=== PATIENT | male | born 1980 | race Caucasian/White ===

== ENCOUNTER 2020-01-04 13:30 | Emergency (ER) | payer MEDICAID ==
--- NOTE | 2020-01-04 14:41 | EDM.PDOC ---
ED HPI GENERAL MEDICAL PROBLEM - General Chief Complaint: General Stated Complaint: BUMPS ON HEAD, HEADACHES, POSSIBLE RINGWORM Time Seen by Provider: 01/04/20 14:25 Source of Information: Reports: Patient History Limitations: Reports: No Limitations - History of Present Illness INITIAL COMMENTS - FREE TEXT/NARRATIVE: c/o lump on back of head for 2w pt just moved from [facility], no PCP he has a lump as well as a skin rash, no f/c/d, no sob smokes THC, none in 1.5w no chronic health issues, no daily meds, has no PCP yet has had bifrontal GOLD x 2d, agreeable to Toradol Treatments [employer]: Reports: Acetaminophen, NSAIDS R posterior head Pain Score (Numeric/FACES): 6 - Related Data Allergies Allergy/AdvReac Type Severity Reaction Status Date / Time .bubble gum flavoring Allergy Rash Uncoded 01/04/20 13:41 Home Meds: Home Meds Ibuprofen [Motrin] 800 mg PO TID #30 tablet 01/04/20 [Rx] Miconazole [Miconazole 2% Crm] 30 gm TOP BID #1 tube 01/04/20 [Rx] Past Medical History Genitourinary History: Reports: Renal Calculus Musculoskeletal History: Reports: Arthritis, Fracture Other Musculoskeletal History: 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 L 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, scaffoid bone Neurological History: Reports: Concussion, Migraines Psychiatric History: Reports: Anxiety Endocrine/Metabolic History: Reports: Obesity/BMI 30+ - Infectious Disease History Infectious Disease History: Reports: Chicken Pox - Past Surgical History HEENT Surgical History: Reports: Adenoidectomy, Myringotomy w Tube(s), Oral Surgery, Tonsillectomy Other HEENT Surgeries/Procedures: bilat tubes in ears Male Surgical History: Reports: Ureteral Stent, Other (See Below) Other Male Surgeries/Procedures: stent in urethra & kidney, urethral tear with repair x 16 Musculoskeletal Surgical History: Reports: Carpal Tunnel, Other (See Below) Other Musculoskeletal Surgeries/Procedures:: R scaffoid bone surgery x 2 Social & Family History - Family History Family Medical History: Noncontributory - Tobacco Use Tobacco Use Status *Q: Current Every Day Tobacco User Years of Tobacco use: 26 Packs/Tins Daily: 0.5 - Caffeine Use Caffeine Use: Reports: Coffee, Energy Drinks, Soda, Tea - Recreational Drug Use Recreational Drug Use: Yes Recreational Drug Type: Reports: Marijuana/Hashish Other Recreational Drug Type: Has not used pot x past 1 1/2 wks since moving from [place]. ED ROS GENERAL - Review of Systems Review Of Systems: See Below Constitutional: Reports: No Symptoms HEENT: Reports: No Symptoms Respiratory: Reports: No Symptoms Cardiovascular: Reports: No Symptoms Endocrine: Reports: No Symptoms GI/Abdominal: Reports: No Symptoms : Reports: No Symptoms Musculoskeletal: Reports: No Symptoms Skin: Reports: Rash, Other (lump) Neurological: Reports: Headache Psychiatric: Reports: No Symptoms Hematologic/Lymphatic: Reports: No Symptoms Immunologic: Reports: No Symptoms ED EXAM, GENERAL - Physical Exam Exam: See Below Exam Limited By: No Limitations General Appearance: Alert, WD/WN, No Apparent Distress Eye Exam: Bilateral Eye: EOMI Ears: Normal External Exam, Normal Canal, Hearing Grossly Normal Nose: Normal Inspection, Normal Mucosa, No Blood Throat/Mouth: Normal Inspection, Normal Lips, Normal Teeth, Normal Voice, No Airway Compromise Head: Other (hair cut short, there is a typical tinea capitis of 3 cm with central clearing and mild elevated red ring on R posterior scalp, just lateral to L occipital proturbance is an area of ~5 x 2 x 5 cm of inflamed subc tissue c/w friction and rubbing, no infection, no red/warm, no discrete nodule such as sebaceous cyst, lies higher than LNs, does have one LN behind R ear which he has been rubbing as well) Neck: Normal Inspection, Supple, Non-Tender Respiratory/Chest: No Respiratory Distress, Lungs Clear, Normal Breath Sounds, Chest Non-Tender Cardiovascular: Regular Rate, Rhythm, No Edema, No Gallop, No JVD, No Murmur, No Rub GI/Abdominal: Soft, Non-Tender Back Exam: Normal Inspection Extremities: Normal Inspection, Normal Range of Motion, Non-Tender, Normal Capillary Refill, No Pedal Edema Neurological: Alert, Oriented, CN II-XII Intact, Normal Cognition, No Motor/Sensory Deficits Psychiatric: Normal Affect, Normal Mood Skin Exam: Warm, Dry, Intact, Normal Color, No Rash Course - Vital Signs Last Recorded V/S: Last Vital Signs Temp 36.6 C 01/04/20 13:35 Pulse 86 01/04/20 13:35 Resp 18 01/04/20 13:35 BP 148/100 H 01/04/20 13:35 Pulse Ox 100 01/04/20 13:35 - Orders/Labs/Meds Orders: Active Orders 24 hr Category Date Time Status Ketorolac [Toradol] Med 01/04/20 14:35 Once 60 mg IM ONETIME ONE - Re-Assessments/Exams Free Text/Narrative Re-Assessment/Exam: 01/04/20 14:46 borderline BP that was discussed no labs given list of PCPs Departure - Departure Time of Disposition: 14:35 Disposition: Home, Self-Care 01 Condition: Good Clinical Impression: Inflammation of subcutaneous tissue, Tension headache, Tinea capitis, Elevated blood pressure reading - Discharge Information *PRESCRIPTION DRUG MONITORING PROGRAM REVIEWED*: Not Applicable *COPY OF PRESCRIPTION DRUG MONITORING REPORT IN PATIENT MARY: Not Applicable Prescriptions: Miconazole [Miconazole 2% Crm] 30 gm TOP BID #1 tube Ibuprofen [Motrin] 800 mg PO TID #30 tablet Instructions: Tension Headache, Adult, Hypertension, Adult, Preventing Hypertension, Body Ringworm Referrals: PCP,None [Primary Care Provider] - Additional Instructions: For ringworm, use thin layer of 2% miconazole cream 2 times a day for 2 weeks. For inflamed subcutaneous tissue, take ibuprofen 800 mg 1 tab 3 times a day for 5-10 days. Avoid pressure, friction or rubbing. For elevated blood pressure, establish care with a primary care physician to recheck. May also check at a local drug store. Sepsis Event Note (ED) - Evaluation Sepsis Screening Result: No Definite Risk - Focused Exam Vital Signs: Vital Signs Temp Pulse Resp BP Pulse Ox 01/04/20 13:35 36.6 C 86 18 148/100 H 100 - My Orders Last 24 Hours: My Active Orders 01/04/20 14:35 Ketorolac [Toradol] 60 mg IM ONETIME ONE - Assessment/Plan Last 24 Hours: My Active Orders 01/04/20 14:35 Ketorolac [Toradol] 60 mg IM ONETIME ONE
[2020-01-04] MEDS: Ketorolac 60 MG/2 ML SDV IM ONE (14:55)
== END 2020-01-04 15:03 | disposition home or self-care (01) ==
LOC: FB.ED 13:30
DX: B35.0 Tinea barbae and tinea capitis (principal); G44.209 Tension-type headache, unspecified, not intractable; R03.0 Elevated blood-pressure reading, without diagnosis of hypertension; E66.9 Obesity, unspecified; F17.210 Nicotine dependence, cigarettes, uncomplicated; Z91.048 Other nonmedicinal substance allergy status
CPT/HCPCS: 96372; 99283; J1885